=== PATIENT | male | born 1930 | race Hispanic/Latino ===

== ENCOUNTER 2021-02-20 07:58 | Inpatient (IN) | payer OTHER, MEDICARE ==
[~2021-02-20] VITALS: Ht 172.7 cm; Wt 86.2 kg
[~2021-02-20 07:58] MED LIST: ACTOS/METFORMIN PO; ALPRAZOLAM0.5 M1 PO; ASPIRIN81 MG PO; CALCIUM 600 +1 EAC8 PO; CARBIDOPA/LEVODOPA PO; CITALOPRAM HBR40 MG PO; COLACE100 MG PO; CORDARONE200 MG PO; COUMADIN2 MG PO; DAILY VITAMIN1 EAC3 PO; ENALAPRIL-HCTZ1 EAC1 PO; FLOMAX0.4 MG PO; GLIMEPIRIDE4 MG PO; JANUVIA100 MG PO; PANTOPRAZOLE SO40 MG PO; SENOKOT8.6 MG PO; SIMVASTATIN80 MG PO; VERAPAMIL HCL240 MG PO; ZETIA10 MG PO
[2021-02-20 08:54] LABS: BASOPHILS # (AUTO) 0.1 (0.0-0.1); BASOPHILS % 0.5 % (0.0-1.0); EOSINOPHILS # (AUTO) 0.2 (0.0-0.4); EOSINOPHILS % 2.3 % (0.0-6.0); HEMATOCRIT 27.4 % (38.2-49.6); HEMOGLOBIN 8.2 g/dL (14.0-18.0); LYMPHOCYTES # (AUTO) 1.4 (1.0-3.2); LYMPHOCYTES % 13.6 % (18.0-39.1); MEAN CORPUSCULAR HEMOGLOBIN 29.4 pg (28-32); MEAN CORPUSCULAR HGB CONC 29.9 g/dL (31-35); MEAN CORPUSCULAR VOLUME 98.2 fL (81-99); MONOCYTES # (AUTO) 0.7 (0.2-0.8); MONOCYTES % 6.8 % (4.4-11.3); NEUTROPHILS % 76.4 % (38.7-80.0); PLATELET COUNT 235 x10e3/uL (140-360); RED BLOOD COUNT 2.79 x10e6/uL (4.3-5.7); RED CELL DISTRIBUTION WIDTH 15.9 % (11.7-14.4)
[2021-02-20 09:16] LABS: ALBUMIN 3.1 g/dL (3.5-5.0); ALBUMIN/GLOBULIN RATIO 0.7 (0.8-2.0); ANION GAP 16.5 mmol/L (8-16); CALCIUM 8.7 mg/dL (8.4-10.2); CREATININE, SERUM 2.11 mg/dL (0.72-1.25); POTASSIUM 4.5 mmol/L (3.5-5.1)
[2021-02-20 09:33] LABS: CLARITY,URINE CLEAR (CLEAR); COLOR,URINE YELLOW (YELLOW); KETONES,URINE NEGATIVE (NEGATIVE); LEUKOCYTE ESTERASE ,URINE TRACE (NEGATIVE); NITRITE,URINE NEGATIVE (NEGATIVE); PROTEIN,URINE DIPSTICK NEGATIVE (NEGATIVE); URINE UROBILINOGEN 0.2 mg/dL (0.2 - 1)
[2021-02-20 09:47] LABS: BACTERIA,URINE RARE /HPF; EPITHELIAL CELLS,URINE RARE /LPF; RBC,URINE 0-5 /HPF (0-5); WBC,URINE (MAN) 0-5 /HPF (0-5)
[2021-02-20] MEDS ORDERED: FUROSEMIDE INJ 10 MG/ML 4 ML VIAL IV ONE (10:00)
[2021-02-20] MEDS: CEFEPIME HCL 1GM 1 GM in SODIUM CHLORIDE 0.9% 50ML 50 ML IV SCH (11:10)
[2021-02-20 11:35] VITALS: BP 127/59
[2021-02-20 11:58] VITALS: BP 127/59
[2021-02-20 14:55] VITALS: BP 127/59
[2021-02-20] MEDS ORDERED: ACETAMINOPHEN325 M1 PO ×2 (15:44→16:32)
[2021-02-20] MEDS ORDERED: ASCORBIC ACID500 MG PO (15:44)
[2021-02-20 16:11] VITALS: BP 148/58
[2021-02-20] MEDS ORDERED: ASPIRIN EC81 MG PO (16:32)
[2021-02-20] MEDS ORDERED: CYCLOBENZAPRINE5 MG PO (16:32)
[2021-02-20] MEDS ORDERED: SINEMET 25-1001 EACH PO (16:32)
[2021-02-20] MEDS ORDERED: METOPROLOL SUCC50 MG PO (16:32)
[2021-02-20] MEDS ORDERED: CEFTRIAXONE1 GM IV (16:32)
[2021-02-20] MEDS ORDERED: BISACODYL5 MG PO (16:32)
[2021-02-20] MEDS ORDERED: FLOMAX0.4 MG PO (16:32)
[2021-02-20] MEDS ORDERED: ASPERCREME LID1 EACH TOP (16:32)
[2021-02-20] MEDS ORDERED: LIPITOR20 MG PO (16:32)
[2021-02-20] MEDS ORDERED: ULTRAM50 MG PO (16:32)
[2021-02-20] MEDS ORDERED: FINASTERIDE5 MG PO (16:32)
[2021-02-20] MEDS ORDERED: COMBIVENT RESPIM4 GM IH (16:32)
[2021-02-20] MEDS ORDERED: PROTONIX40 MG PO (16:32)
[2021-02-20] MEDS ORDERED: [UNRECOGNIZED DRUG - OTHER] PO (16:32)
[2021-02-20] MEDS ORDERED: BASAGLAR K100 UNIT/1 SQ (16:32)
[2021-02-20] MEDS ORDERED: FUROSEMIDE40 MG PO (16:32)
[2021-02-20] MEDS ORDERED: MIRTAZAPINE7.5 MG PO (16:32)
[2021-02-20] MEDS ORDERED: NEURONTIN100 MG PO (16:32)
[2021-02-20] MEDS ORDERED: ELIQUIS2.5 MG PO (16:32)
[2021-02-20] MEDS ORDERED: DEXTROSE 50% SYRINGE 50 ML IV PRN (20:00)
[2021-02-20] MEDS ORDERED: VANCOMYCIN 1GM/NS 250 ML 250 ML IV ONE (20:45)
[2021-02-20] MEDS ORDERED: ALBUTEROL/IPRATROPIUM 3 ML NEB NEB PRN (20:45)
[2021-02-20] MEDS ORDERED: BENZONATATE 100 MG CAP PO PRN (20:45)
[2021-02-20] MEDS: ATORVASTATIN 20 MG TAB PO SCH (21:00)
[2021-02-20] MEDS: INSULIN LISPRO 100 UNIT/1 ML 3ML VIAL SQ SCH (21:00)
[2021-02-20] MEDS: MIRTAZAPINE 15 MG TAB PO SCH (21:00)
[2021-02-20] MEDS: CARBIDOPA/LEVODOPA 25/100 TAB PO SCH (21:00)
[2021-02-20] MEDS: BISACODYL 5 MG TAB EC PO SCH (21:00)
[2021-02-20 21:05] VITALS: BP 149/63
[2021-02-20 21:05] LABS: CHOL/HDL RATIO 3.9 (3.9-4.7)
[2021-02-20] MEDS: INSULIN GLARGINE 100 UNITS/ML VIAL SQ SCH (21:10)
[2021-02-20 21:24] LABS: THYROID STIMULATING HORMONE 0.371 uIU/mL (0.350-4.940)
[2021-02-20] MEDS ORDERED: AZITHROMYCIN 500MG/NS 250 ML 125 ML IV ONE (21:30)
[2021-02-20] MEDS: GUAIFENESIN/DEXTROMETHORPHAN LIQD 5 ML UDC NG SCH (22:00)
[2021-02-20] MEDS: GABAPENTIN 100 MG CAP PO SCH (22:00)
[2021-02-20] MEDS: FUROSEMIDE INJ 10 MG/ML 2 ML VIAL IV SCH (22:00)
[2021-02-21] VITALS (8 sets, daily range): BP systolic 114–145; BP diastolic 48–59
[2021-02-21] MEDS: GUAIFENESIN/DEXTROMETHORPHAN LIQD 5 ML UDC NG SCH ×3 (06:00→22:00)
[2021-02-21] MEDS: GABAPENTIN 100 MG CAP PO SCH ×3 (06:00→22:00)
[2021-02-21] MEDS: FUROSEMIDE INJ 10 MG/ML 2 ML VIAL IV SCH ×3 (06:00→22:00)
[2021-02-21 07:53] LABS: BASOPHILS % 0.3 % (0.0-1.0); EOSINOPHILS # (AUTO) 0.1 (0.0-0.4); EOSINOPHILS % 0.6 % (0.0-6.0); HEMATOCRIT 24.7 % (38.2-49.6); HEMOGLOBIN 7.5 g/dL (14.0-18.0); LYMPHOCYTES # (AUTO) 0.9 (1.0-3.2); LYMPHOCYTES % 9.6 % (18.0-39.1); MEAN CORPUSCULAR HEMOGLOBIN 29.3 pg (28-32); MEAN CORPUSCULAR HGB CONC 30.4 g/dL (31-35); MEAN CORPUSCULAR VOLUME 96.5 fL (81-99); MONOCYTES # (AUTO) 0.5 (0.2-0.8); MONOCYTES % 5.2 % (4.4-11.3); NEUTROPHILS # (AUTO) 7.8 (2.1-6.9); NEUTROPHILS % 83.7 % (38.7-80.0); PLATELET COUNT 244 x10e3/uL (140-360); RED BLOOD COUNT 2.56 x10e6/uL (4.3-5.7); RED CELL DISTRIBUTION WIDTH 15.9 % (11.7-14.4)
[2021-02-21 08:23] LABS: ANION GAP 16.6 mmol/L (8-16); CALCIUM 8.2 mg/dL (8.4-10.2); CREATININE, SERUM 1.9 mg/dL (0.72-1.25); POTASSIUM 4.6 mmol/L (3.5-5.1)
[2021-02-21] MEDS: INSULIN LISPRO 100 UNIT/1 ML 3ML VIAL SQ SCH ×4 (08:49→21:00)
[2021-02-21 09:00] LABS: MAGNESIUM 1.9 MG/DL (1.3-2.1); PHOSPHORUS 3.5 MG/DL (2.3-4.7)
[2021-02-21] MEDS: INSULIN GLARGINE 100 UNITS/ML VIAL SQ SCH ×2 (09:20→16:45)
[2021-02-21] MEDS: PANTOPRAZOLE SODIUM 40 MG SUSPDR.PKT PO SCH (09:24)
[2021-02-21] MEDS: ASCORBIC ACID 500 MG TAB PO SCH ×2 (09:24→16:36)
[2021-02-21] MEDS: FINASTERIDE 5 MG TAB PO SCH (09:24)
[2021-02-21] MEDS: APIXAB 2.5 MG TABLET PO SCH ×2 (09:24→16:34)
[2021-02-21] MEDS: AMIODARONE HCL 200 MG TAB PO SCH (09:24)
[2021-02-21] MEDS: LORATADINE 10 MG TAB PO SCH (09:24)
[2021-02-21] MEDS: ASPIRIN 81 MG ENTERIC COATED PO SCH ×2 (09:24→16:34)
[2021-02-21] MEDS: DOCUSATE SODIUM 100 MG CAP PO SCH ×2 (09:24→15:46)
[2021-02-21] MEDS: METOPROLOL SUCCINATE 50 MG TAB XL PO SCH ×2 (09:24→16:36)
[2021-02-21] MEDS: CARBIDOPA/LEVODOPA 25/100 TAB PO SCH ×3 (09:24→21:00)
[2021-02-21] MEDS: CEFEPIME HCL 1GM 1 GM in SODIUM CHLORIDE 0.9% 50ML 50 ML IV SCH (09:24)
[2021-02-21] MEDS: TAMSULOSIN HCL 0.4 MG CAP PO SCH (09:24)
[2021-02-21] MEDS: ATORVASTATIN 20 MG TAB PO SCH (21:00)
[2021-02-21] MEDS: BISACODYL 5 MG TAB EC PO SCH (21:00)
[2021-02-21] MEDS ORDERED: AZITHROMYCIN 250MG/NS 100 ML 100 ML IV SCH (21:00)
[2021-02-21] MEDS: MIRTAZAPINE 15 MG TAB PO SCH (21:00)
[2021-02-21] MEDS ORDERED: AZITHROMYCIN 500MG/NS 250 ML 125 ML IV STA (22:16)
[2021-02-22] VITALS (7 sets, daily range): BP systolic 115–136; BP diastolic 49–71
[2021-02-22] MEDS: GUAIFENESIN/DEXTROMETHORPHAN LIQD 5 ML UDC NG SCH ×3 (06:36→21:30)
[2021-02-22] MEDS: GABAPENTIN 100 MG CAP PO SCH ×3 (06:36→21:30)
[2021-02-22] MEDS: FUROSEMIDE INJ 10 MG/ML 2 ML VIAL IV SCH ×3 (06:36→21:30)
[2021-02-22] MEDS: INSULIN LISPRO 100 UNIT/1 ML 3ML VIAL SQ SCH ×4 (07:30→21:10)
[2021-02-22] MEDS: PANTOPRAZOLE SODIUM 40 MG SUSPDR.PKT PO SCH (08:47)
[2021-02-22] MEDS: ASPIRIN 81 MG ENTERIC COATED PO SCH ×2 (08:48→17:44)
[2021-02-22] MEDS: AMIODARONE HCL 200 MG TAB PO SCH (08:49)
[2021-02-22] MEDS: APIXAB 2.5 MG TABLET PO SCH ×2 (08:49→17:44)
[2021-02-22] MEDS: DOCUSATE SODIUM 100 MG CAP PO SCH ×2 (08:49→17:44)
[2021-02-22] MEDS: CARBIDOPA/LEVODOPA 25/100 TAB PO SCH ×3 (08:49→20:36)
[2021-02-22] MEDS: FINASTERIDE 5 MG TAB PO SCH (08:49)
[2021-02-22] MEDS: LORATADINE 10 MG TAB PO SCH (08:49)
[2021-02-22] MEDS: TAMSULOSIN HCL 0.4 MG CAP PO SCH (08:49)
[2021-02-22] MEDS: BALSAM PERU/CASTOR OIL 60 GM OINT...G. TP SCH (08:50)
[2021-02-22] MEDS: COLLAGENASE 5 GM TUBE TOP SCH (08:50)
[2021-02-22] MEDS: METOPROLOL SUCCINATE 50 MG TAB XL PO SCH ×2 (08:50→17:44)
[2021-02-22] MEDS: ASCORBIC ACID 500 MG TAB PO SCH ×2 (08:50→17:44)
[2021-02-22] MEDS: CEFEPIME HCL 1GM 1 GM in SODIUM CHLORIDE 0.9% 50ML 50 ML IV SCH (08:52)
[2021-02-22] MEDS: INSULIN GLARGINE 100 UNITS/ML VIAL SQ SCH ×2 (08:52→17:00)
[2021-02-22] MEDS ORDERED: SODIUM CHLORIDE 0.9% 250ML 250 ML ONE (09:05)
[2021-02-22] MEDS: AZITHROMYCIN 250MG/NS 100 ML 100 ML IV SCH (17:44)
[2021-02-22] MEDS: BISACODYL 5 MG TAB EC PO SCH (20:36)
[2021-02-22] MEDS: ATORVASTATIN 20 MG TAB PO SCH (20:36)
[2021-02-22] MEDS: MIRTAZAPINE 15 MG TAB PO SCH (20:36)
[2021-02-22] MEDS: ACETAMINOPHEN 325 MG TAB PO PRN (23:45)
[2021-02-23] VITALS (8 sets, daily range): BP systolic 120–146; BP diastolic 52–69
[2021-02-23] MEDS: FUROSEMIDE INJ 10 MG/ML 2 ML VIAL IV SCH ×3 (05:42→21:11)
[2021-02-23] MEDS: GUAIFENESIN/DEXTROMETHORPHAN LIQD 5 ML UDC NG SCH ×4 (05:49→22:00)
[2021-02-23] MEDS: GABAPENTIN 100 MG CAP PO SCH ×3 (05:49→22:00)
[2021-02-23 07:01] LABS: MAGNESIUM 2.1 MG/DL (1.3-2.1); PHOSPHORUS 2.7 MG/DL (2.3-4.7)
[2021-02-23] MEDS: LORATADINE 10 MG TAB PO SCH (08:18)
[2021-02-23] MEDS: ASPIRIN 81 MG ENTERIC COATED PO SCH ×3 (08:18→17:19)
[2021-02-23] MEDS: DOCUSATE SODIUM 100 MG CAP PO SCH ×3 (08:18→17:19)
[2021-02-23] MEDS: APIXAB 2.5 MG TABLET PO SCH ×3 (08:19→17:19)
[2021-02-23] MEDS: AMIODARONE HCL 200 MG TAB PO SCH (08:19)
[2021-02-23] MEDS: FINASTERIDE 5 MG TAB PO SCH (08:20)
[2021-02-23] MEDS: ASCORBIC ACID 500 MG TAB PO SCH ×2 (08:20→17:20)
[2021-02-23] MEDS: METOPROLOL SUCCINATE 50 MG TAB XL PO SCH ×2 (08:20→17:00)
[2021-02-23] MEDS: TAMSULOSIN HCL 0.4 MG CAP PO SCH (08:20)
[2021-02-23] MEDS: CARBIDOPA/LEVODOPA 25/100 TAB PO SCH ×4 (08:20→20:58)
[2021-02-23] MEDS: INSULIN GLARGINE 100 UNITS/ML VIAL SQ SCH ×2 (08:22→17:21)
[2021-02-23] MEDS: BALSAM PERU/CASTOR OIL 60 GM OINT...G. TP SCH (08:22)
[2021-02-23] MEDS: COLLAGENASE 5 GM TUBE TOP SCH (08:22)
[2021-02-23] MEDS: CEFEPIME HCL 1GM 1 GM in SODIUM CHLORIDE 0.9% 50ML 50 ML IV SCH (08:22)
[2021-02-23] MEDS: INSULIN LISPRO 100 UNIT/1 ML 3ML VIAL SQ SCH ×4 (08:23→21:19)
[2021-02-23] MEDS: PANTOPRAZOLE SODIUM 40 MG SUSPDR.PKT PO SCH (08:31)
[2021-02-23] MEDS: AZITHROMYCIN 250MG/NS 100 ML 100 ML IV SCH (17:21)
[2021-02-23] MEDS: ATORVASTATIN 20 MG TAB PO SCH (20:58)
[2021-02-23] MEDS: MIRTAZAPINE 15 MG TAB PO SCH ×2 (20:58→21:00)
[2021-02-23] MEDS: BISACODYL 5 MG TAB EC PO SCH (20:58)
[2021-02-23] MEDS: ACETAMINOPHEN 325 MG TAB PO PRN (21:19)
[2021-02-24] VITALS (8 sets, daily range): BP systolic 97–151; BP diastolic 47–80
[2021-02-24] MEDS: FUROSEMIDE INJ 10 MG/ML 2 ML VIAL IV SCH ×3 (05:37→21:09)
[2021-02-24] MEDS: GUAIFENESIN/DEXTROMETHORPHAN LIQD 5 ML UDC NG SCH ×3 (05:37→21:09)
[2021-02-24] MEDS: GABAPENTIN 100 MG CAP PO SCH ×3 (05:38→21:09)
[2021-02-24] MEDS: ASCORBIC ACID 500 MG TAB PO SCH ×2 (09:33→16:52)
[2021-02-24] MEDS: METOPROLOL SUCCINATE 50 MG TAB XL PO SCH ×2 (09:33→16:52)
[2021-02-24] MEDS: APIXAB 2.5 MG TABLET PO SCH ×2 (09:33→16:52)
[2021-02-24] MEDS: DOCUSATE SODIUM 100 MG CAP PO SCH ×2 (09:33→16:52)
[2021-02-24] MEDS: FINASTERIDE 5 MG TAB PO SCH (09:33)
[2021-02-24] MEDS: LORATADINE 10 MG TAB PO SCH (09:33)
[2021-02-24] MEDS: PANTOPRAZOLE SODIUM 40 MG SUSPDR.PKT PO SCH (09:33)
[2021-02-24] MEDS: AMIODARONE HCL 200 MG TAB PO SCH (09:33)
[2021-02-24] MEDS: COLLAGENASE 5 GM TUBE TOP SCH (09:33)
[2021-02-24] MEDS: ASPIRIN 81 MG ENTERIC COATED PO SCH ×2 (09:33→16:52)
[2021-02-24] MEDS: CARBIDOPA/LEVODOPA 25/100 TAB PO SCH ×3 (09:33→21:09)
[2021-02-24] MEDS: TAMSULOSIN HCL 0.4 MG CAP PO SCH (09:33)
[2021-02-24] MEDS: BALSAM PERU/CASTOR OIL 60 GM OINT...G. TP SCH (09:34)
[2021-02-24] MEDS: INSULIN LISPRO 100 UNIT/1 ML 3ML VIAL SQ SCH ×4 (09:49→21:12)
[2021-02-24] MEDS: INSULIN GLARGINE 100 UNITS/ML VIAL SQ SCH ×2 (09:50→16:53)
[2021-02-24] MEDS: CEFEPIME HCL 1GM 1 GM in SODIUM CHLORIDE 0.9% 50ML 50 ML IV SCH (11:44)
[2021-02-24] MEDS: AZITHROMYCIN 250MG/NS 100 ML 100 ML IV SCH (16:53)
[2021-02-24] MEDS: BISACODYL 5 MG TAB EC PO SCH (21:09)
[2021-02-24] MEDS: MIRTAZAPINE 15 MG TAB PO SCH (21:09)
[2021-02-24] MEDS: ATORVASTATIN 20 MG TAB PO SCH (21:09)
[2021-02-25 00:54] VITALS: BP 134/50
[2021-02-25] MEDS: TRAMADOL HCL 50 MG TAB PO PRN ×2 (03:30→11:09)
[2021-02-25 04:41] VITALS: BP 130/55
[2021-02-25] MEDS: GABAPENTIN 100 MG CAP PO SCH ×2 (05:25→18:17)
[2021-02-25] MEDS: FUROSEMIDE INJ 10 MG/ML 2 ML VIAL IV SCH ×2 (05:25→18:17)
[2021-02-25] MEDS: GUAIFENESIN/DEXTROMETHORPHAN LIQD 5 ML UDC NG SCH ×2 (05:25→18:13)
[2021-02-25] MEDS: INSULIN LISPRO 100 UNIT/1 ML 3ML VIAL SQ SCH ×3 (07:30→16:30)
[2021-02-25 07:54] VITALS: BP 143/55
[2021-02-25] MEDS: BALSAM PERU/CASTOR OIL 60 GM OINT...G. TP SCH (09:00)
[2021-02-25 09:54] VITALS: BP 143/55
[2021-02-25] MEDS: ASPIRIN 81 MG ENTERIC COATED PO SCH ×2 (10:54→18:17)
[2021-02-25] MEDS: PANTOPRAZOLE SODIUM 40 MG SUSPDR.PKT PO SCH (10:54)
[2021-02-25] MEDS: LORATADINE 10 MG TAB PO SCH (10:54)
[2021-02-25] MEDS: CARBIDOPA/LEVODOPA 25/100 TAB PO SCH ×2 (10:55→18:17)
[2021-02-25] MEDS: TAMSULOSIN HCL 0.4 MG CAP PO SCH (10:55)
[2021-02-25] MEDS: AMIODARONE HCL 200 MG TAB PO SCH (10:55)
[2021-02-25] MEDS: APIXAB 2.5 MG TABLET PO SCH ×2 (10:55→18:17)
[2021-02-25] MEDS: FINASTERIDE 5 MG TAB PO SCH (10:55)
[2021-02-25] MEDS: DOCUSATE SODIUM 100 MG CAP PO SCH ×2 (10:55→18:17)
[2021-02-25] MEDS: ASCORBIC ACID 500 MG TAB PO SCH ×2 (10:56→18:23)
[2021-02-25] MEDS: METOPROLOL SUCCINATE 50 MG TAB XL PO SCH ×2 (10:56→18:21)
[2021-02-25] MEDS: CEFEPIME HCL 1GM 1 GM in SODIUM CHLORIDE 0.9% 50ML 50 ML IV SCH (10:58)
[2021-02-25 11:46] VITALS: BP 127/48
[2021-02-25 15:35] VITALS: BP 127/50
[2021-02-25] MEDS: INSULIN GLARGINE 100 UNITS/ML VIAL SQ SCH ×2 (17:00→18:06)
[2021-02-25] MEDS: AZITHROMYCIN 250MG/NS 100 ML 100 ML IV SCH (18:00)
== END 2021-02-25 18:27 | DRG 291 ==
LOC: ER 08:13 → ERHOLD 09:54 → MED/SURG3 10:58 → OBSVTOIN 02-22 10:56
PROVIDERS: ADMIT Internal Medicine; ATTEND Internal Medicine
DX: I13.0 Hypertensive heart and chronic kidney disease with heart failure and stage 1 through stage 4 chronic kidney disease, or unspecified chronic kidney disease (principal); J18.9 Pneumonia, unspecified organism; I50.21 Acute systolic (congestive) heart failure; J96.00 Acute respiratory failure, unspecified whether with hypoxia or hypercapnia; I48.91 Unspecified atrial fibrillation; I25.10 Atherosclerotic heart disease of native coronary artery without angina pectoris; K21.9 Gastro-esophageal reflux disease without esophagitis; E78.5 Hyperlipidemia, unspecified; G20 Parkinson's disease; F02.80 Dementia in other diseases classified elsewhere, unspecified severity, without behavioral disturbance, psychotic disturbance, mood disturbance, and anxiety; Z95.810 Presence of automatic (implantable) cardiac defibrillator; E11.22 Type 2 diabetes mellitus with diabetic chronic kidney disease; N18.30 Chronic kidney disease, stage 3 unspecified; Z95.1 Presence of aortocoronary bypass graft; I73.9 Peripheral vascular disease, unspecified; Z87.891 Personal history of nicotine dependence; S72.002D Fracture of unspecified part of neck of left femur, subsequent encounter for closed fracture with routine healing; I65.22 Occlusion and stenosis of left carotid artery; N40.0 Benign prostatic hyperplasia without lower urinary tract symptoms; W19.XXXA Unspecified fall, initial encounter; Z91.81 History of falling; Y92.230 Patient room in hospital as the place of occurrence of the external cause; Z20.822 Contact with and (suspected) exposure to COVID-19; Z79.4 Long term (current) use of insulin
CPT/HCPCS: 36415; 70450; 71045; 71046; 73521; 80048; 80053; 80061; 81001; 82948; 83036; 83605; 83735; 83880; 84100; 84443; 84484; 85025; 87040; 87086; 93005; 97139; 99251; 99284; G0378; J0456; J0692; J1815; J1940; J3370; J7050; U0002